=== PATIENT | female | born 1990 | race African-American/Black ===

== ENCOUNTER 2020-08-03 22:30 | Emergency (ER) | payer SELFPAY ==
[~2020-08-03] VITALS: Ht 160 cm; Wt 95.3 kg
[2020-08-03 22:35] VITALS: BP 109/65
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
--- NOTE | 2020-08-03 23:29 | NUR ---
Dr. Collins examining patient.
[2020-08-03] MEDS ORDERED: NACL 0.9% 1,000 ML IV SCH (23:30)
[2020-08-03] MEDS ORDERED: MORPHINE SULFATE 2 MG/ML SYR IVP ONE (23:30)
--- NOTE | 2020-08-03 23:33 | NUR ---
X-Ray at bedside.
--- NOTE | 2020-08-04 | NUR ---
URINE SAMPLE COLLECTED AND HANDED TO TOM VILLARREAL TECH.
[2020-08-04 00:04] LABS: APPEARANCE,URINE CLEAR (CLEAR); BILIRUBIN,URINE NEGATIVE (NEGATIVE); BLOOD, URINE NEGATIVE (NEGATIVE); COLOR,URINE YELLOW (YELLOW); LEUKOCYTE ESTERASE ,URINE NEGATIVE (NEGATIVE); NITRITE, URINE NEGATIVE (NEGATIVE); UGLUCOSE 3+ (NEGATIVE)
[2020-08-04 00:14] LABS: RBC,URINE NONE SEEN /HPF (0-5); WBC,URINE NONE SEEN /HPF (0-5)
--- NOTE | 2020-08-04 00:30 | NUR ---
BLOOD LABS & CULTURE COLLECTED , WALKED TO LAB AND HANDED TO TOM VILLARREAL TECH .
[2020-08-04 00:44] LABS: BASOPHILS % (AUTO) 0.4 % (0.0-2.0); EOSINOPHILS # (AUTO) 0.7 K/uL (0-0.4); HEMATOCRIT 30.3 % (36-48); HEMOGLOBIN 10.1 g/dL (12.0-16.0); LYMPHOCYTES # (AUTO) 2.2 K/uL (2.5-16.5); LYMPHOCYTES % (AUTO) 19.6 % (20.5-51.1); MEAN CORPUSCULAR HEMOGLOBIN 27 pg (27-31); MEAN CORPUSCULAR HGB CONC 33 g/dL (33-37); MEAN CORPUSCULAR VOLUME 79.8 fL (80-94); MONOCYTES # (AUTO) 0.8 K/uL (0.8-1.0); MONOCYTES % (AUTO) 7.2 % (1.7-9.3); NEUTROPHILS # (AUTO) 7.6 K/uL (1.8-7.7); NEUTROPHILS % (AUTO) 66.6 % (42.2-75.2); PLATELET COUNT (AUTO) 270 K/uL (140-450); RED CELL DISTRIBUTION WIDTH 17.1 % (11.6-13.7); WHITE BLOOD COUNT (AUTO) 11.4 K/uL (4.8-10.8)
[2020-08-04 00:52] LABS: EOSINOPHILS % (AUTO) 6.2 % (0.0-4.0)
[2020-08-04 00:59] LABS: ANION GAP 15.3 (8-16); CARBON DIOXIDE 21.3 mmol/L (21-32); CREATININE 0.8 mg/dL (0.6-1.3); POTASSIUM 3.6 mmol/L (3.5-5.1)
[2020-08-04] MEDS ORDERED: diphenhydrAMINE 50 MG/ML VIAL IVP ONE (01:00)
[2020-08-04] MEDS ORDERED: MORPHINE SULFATE 2 MG/ML SYR IVP ONE (01:00)
[2020-08-04 01:03] LABS: PROTHROMBIN TIME 10.1 secs (10.8-13.4)
[2020-08-04 01:04] LABS: TOTAL BILIRUBIN 0.3 mg/dL (0.0-1.0)
--- NOTE | 2020-08-04 01:30 | NUR ---
PER PT - PAIN LEVEL 12/30 , ERMD MADE AWARE OF PT PAIN LEVEL AT THIS TIME.
--- NOTE | 2020-08-04 01:43 | NUR ---
ERMD AT BEDSIDE.
[2020-08-04] MEDS ORDERED: MORPHINE SULFATE 4 MG/ML SYR IVP ONE (01:45)
--- NOTE | 2020-08-04 02:23 | NUR ---
Per Pt she has a ride picking her up from ER.
--- NOTE | 2020-08-04 02:23 | NUR ---
per pt - pain level currently at 01/30 . ERMD made aware.
--- NOTE | 2020-08-04 02:28 | NUR ---
IV removed, catheter intact and site benign. Applied folded 4x4 gauze and tape to stop bleeding.
[2020-08-04 02:32] VITALS: BP 120/62
--- NOTE | 2020-08-04 02:32 | NUR ---
Patient discharged with v/s stable. Written and verbal after care instructions given and explained. Patient verbalized understanding. Ambulatory with steady gait. All questions addressed prior to discharge. Advised to follow up with PMD.
[2020-08-05] MEDS ORDERED: VITA1TAB44 PO (20:10)
[2020-08-05] MEDS ORDERED: ASCO500T95 PO (20:10)
== END 2020-08-04 02:32 | disposition home or self-care (01) ==
LOC: MED 22:30
DX: D57.819 Other sickle-cell disorders with crisis, unspecified (principal); R03.0 Elevated blood-pressure reading, without diagnosis of hypertension; Z88.0 Allergy status to penicillin; Z88.1 Allergy status to other antibiotic agents; Z79.899 Other long term (current) drug therapy
CPT/HCPCS: 36415; 71045; 80053; 81001; 83605; 85025; 85610; 85730; 87040; 93005; 96361; 96374; 96375; 96376; 99285; J1200; J2270; J7030; Q0092

== ENCOUNTER 2020-08-05 17:13 | Inpatient (IN) | payer MEDICAID, SELFPAY ==
[~2020-08-05] VITALS: Ht 160 cm; Wt 93.4 kg
[2020-08-05 17:17] VITALS: BP 107/70
--- NOTE | 2020-08-05 17:20 | NUR ---
PATIENT AMBULATED TO BED 12.
[2020-08-05] MEDS ORDERED: diphenhydrAMINE 50 MG/ML VIAL IVP ONE ×2 (17:45→18:55)
[2020-08-05] MEDS ORDERED: ONDANSETRON 4 MG/2 ML VIAL IVP ONE (17:45)
[2020-08-05] MEDS ORDERED: MORPHINE SULFATE 4 MG/ML SYR IVP ONE ×2 (17:45→18:55)
--- NOTE | 2020-08-05 17:55 | NUR ---
Lt EJ IV initiated. tolerated well.
--- NOTE | 2020-08-05 18:00 | NUR ---
states unable to provide urine at the moment.
[2020-08-05 18:10] LABS: BASOPHILS # (AUTO) 0.1 K/uL (0.00-0.22); BASOPHILS % (AUTO) 0.7 % (0.0-2.0); EOSINOPHILS # (AUTO) 0.6 K/uL (0-0.4); EOSINOPHILS % (AUTO) 5.1 % (0.0-4.0); HEMATOCRIT 29.6 % (36-48); LYMPHOCYTES # (AUTO) 2.1 K/uL (2.5-16.5); LYMPHOCYTES % (AUTO) 18.3 % (20.5-51.1); MEAN CORPUSCULAR HEMOGLOBIN 27 pg (27-31); MEAN CORPUSCULAR HGB CONC 34 g/dL (33-37); MEAN CORPUSCULAR VOLUME 80.1 fL (80-94); MONOCYTES # (AUTO) 1.1 K/uL (0.8-1.0); MONOCYTES % (AUTO) 9.3 % (1.7-9.3); NEUTROPHILS # (AUTO) 7.5 K/uL (1.8-7.7); NEUTROPHILS % (AUTO) 66.6 % (42.2-75.2); PLATELET COUNT (AUTO) 283 K/uL (140-450); RED CELL DISTRIBUTION WIDTH 16.9 % (11.6-13.7); WHITE BLOOD COUNT (AUTO) 11.3 K/uL (4.8-10.8)
[2020-08-05 18:32] LABS: PROTHROMBIN TIME 10.1 secs (10.8-13.4)
[2020-08-05 18:33] LABS: ALBUMIN 2.9 g/dL (3.4-5.0); ANION GAP 15.9 (8-16); CARBON DIOXIDE 19.8 mmol/L (21-32); CREATININE 0.9 mg/dL (0.6-1.3); POTASSIUM 3.7 mmol/L (3.5-5.1); TOTAL BILIRUBIN 0.3 mg/dL (0.0-1.0)
--- NOTE | 2020-08-05 18:35 | NUR ---
29 year old female coming in for systemic body pain. states she is having a sickle cell crisis x 3 days now. was seen here x 2 days ago and states that her pain meds are not working for her. states pain is 10/[address] Mello made aware. RRR. Heart sounds even and regular. all other systems WNL. pmhx: Sickle cell, + lupus test per pt. allx: PCN, Cipro
--- NOTE | 2020-08-05 18:38 | NUR ---
pt still states unable to provide urine.
--- NOTE | 2020-08-05 19:01 | NUR ---
states " honestly, I still cant provide any urine to you, I don't have the feeling of going." Dr. Mello made aware
--- NOTE | 2020-08-05 19:15 | NUR ---
Received report from SIMONE Reddy. Continuation of care assumed.
--- NOTE | 2020-08-05 20:00 | NUR ---
COVID ANTIGEN (ANNETTE) SWAB COLLECTED AND SENT TO LAB.
[2020-08-05] MEDS ORDERED: ASCO500T95 PO (20:10)
[2020-08-05] MEDS ORDERED: VITA1TAB44 PO (20:10)
[2020-08-05 20:19] LABS: APPEARANCE,URINE CLEAR (CLEAR); BILIRUBIN,URINE NEGATIVE (NEGATIVE); BLOOD, URINE NEGATIVE (NEGATIVE); COLOR,URINE YELLOW (YELLOW); LEUKOCYTE ESTERASE ,URINE NEGATIVE (NEGATIVE); NITRITE, URINE NEGATIVE (NEGATIVE); UGLUCOSE 3+ (NEGATIVE)
[2020-08-05 20:31] LABS: BARBITURATE, URINE NEGATIVE ng/ml (NEG <=200); BENZODIAZEPINE, URINE NEGATIVE ng/mL (NEG <=200); CANNABINOID, URINE NEGATIVE ng/mL (NEG <=50); COCAINE, URINE NEGATIVE ng/mL (NEG <=300); OPIATE, URINE NEGATIVE ng/mL (NEG <=2000); PHENCYCLIDINE SCREEN,URINE NEGATIVE ng/mL (NEG <=25)
[2020-08-05] MEDS: NACL 0.9% 1,000 ML IV SCH (20:36)
[2020-08-05 20:37] LABS: RBC,URINE 0-5 /HPF (0-5)
[2020-08-05 20:38] LABS: WBC,URINE 0-5 /HPF (0-5)
[2020-08-05] MEDS ORDERED: POTASSIUM CHLORIDE 10 MEQ TABER PO PRN (20:40)
[2020-08-05] MEDS ORDERED: guaiFENesin DM 200/20 MG-10 ML 10 ML UDC PO PRN (20:40)
[2020-08-05] MEDS ORDERED: HYDROcodone/APAP 7.5/325 MG 1 TAB PO PRN (20:40)
[2020-08-05] MEDS ORDERED: DOCUSATE SODIUM 100 MG GELCAP PO PRN (20:40)
[2020-08-05] MEDS ORDERED: ACETAMINOPHEN 325 MG TAB PO PRN (20:40)
[2020-08-05] MEDS ORDERED: ZOLPIDEM 5 MG TAB PO PRN (20:40)
[2020-08-05] MEDS ORDERED: ONDANSETRON 4 MG/2 ML VIAL IM/IVP PRN (20:40)
[2020-08-05] MEDS ORDERED: KETOROLAC 30 MG/ML VIAL IVP SCH (20:45)
--- NOTE | 2020-08-05 21:05 | NUR ---
Patient will be admitted to care of DR. SEGOVIA. Admited to TELEMETRY Will go to room 106A. Belongings list completed. Report to SIMONE AGRAWAL.
--- NOTE | 2020-08-05 21:05 | NUR ---
ADMITTED 29 YO, F, PT TO TELE UNIT W/ A CHIEF COMPLAINT OF SYSTEMIC BODY PAIN, DX: OF SICKLE CELL CRISIS. PT IS AAOX4, ABLE TO MAKE NEEDS KNOWN. PT HAS NO APPARENT DISTRESS, NO SOB, RESPIRATIONS EVEN AND UNLABORED. NOTED IV ACCESS ON L EXTRAJUGULAR G18. PT NOTED TO BE IRRITABLE BECAUSE OF PAIN, PER PT SHE RECEIVED 8MG OF MORPHINE AROUND 1849, SHE STILL ASKING FOR MORE MORPHINE, EXPLAINED TO HER THAT THE MD ORDER HAS FREQUENCY OF Q6H. PT WAS UPSET, STATED THAT SHE WAS IN SO MUCH PAIN D/T HER SICKLE CELL. EXPLAINED TO HER THE ALTERNATIVE MEDS SHE CAN GET, VERBALIZED UNDERSTANDING. SKIN DRY, INTACT AND WARM TO TOUCH. ORIENTED TO ROOM AND CALL LIGHT. SAFETY MEASURES IN PLACED. CALL LIGHT WITHIN REACH. WILL CONTINUE TO MONITOR.
[2020-08-05 21:25] LABS: CHOL/HDL RATIO 2.5 (1-4.5); FREE T4 (FREE THYROXINE) 0.97 ng/dL (0.76-1.46); MAGNESIUM 1.7 mg/dL (1.8-2.4); PHOSPHORUS 3.3 mg/dL (2.5-4.9); THYROID STIMULATING HORMONE 1.01 uIU/mL (0.34-3.74)
--- NOTE | 2020-08-05 22:00 | NUR ---
DR SEGOVIA MADE AWARE ABOUT PT'S PAIN, MADE AN ORDER OF DILAUDID 1X FOR SEVERE PAIN.
[2020-08-05] MEDS ORDERED: HYDROmorphone 1 MG/ML AMP IVP ONE (22:05)
[2020-08-05 22:10] LABS: WBC,URINE NONE SEEN /HPF (0-5)
--- NOTE | 2020-08-05 22:30 | NUR ---
CALLED [facility] TO FOLLOW UP THE VERIFICATION OF DILAUDID, INFORMED THEM THAT PT NEEDS IT IMMEDIATELY. WILL FOLLOW UP AGAIN AFTER 15 MINS.
--- NOTE | 2020-08-05 22:50 | NUR ---
DILAUDID 1MG ADMINISTERED VIA IVP FOR SEVERE PAIN. WILL RE-ASSESS PAIN AFTER AN HOUR.
--- NOTE | 2020-08-05 23:50 | NUR ---
PAIN MEDICINE EFFECTIVE, PT SEEN SLEEPING IN BED WITH NO DISTRESS. WILL CONTINUE TO MONITOR.
[2020-08-06] VITALS: BP 104/56
--- NOTE | 2020-08-06 01:50 | NUR ---
PT IN BED RESTING COMFORTABLY, NO ACUTE DISTRESS, NO SOB NOTED. NO C/O PAIN AT THIS TIME. SAFETY MEASURES IN PLACED. CALL LIGHT WITHIN REACH. WILL CONTINUE TO MONITOR.
[2020-08-06] MEDS ORDERED: HYDROmorphone 1 MG/ML AMP ONE (04:25)
[2020-08-06] MEDS ORDERED: CLINICAL MONITORING MC PRN ×2 (05:30→06:10)
--- NOTE | 2020-08-06 05:39 | NUR ---
PATIENT HAS BEEN SCREENED AND CATEGORIZED MODERATE NUTRITION RISK. PATIENT WILL BE SEEN WITHIN 3-5 DAYS OF ADMISSION. 08/08/20 08/10/[address]
[2020-08-06 06:53] LABS: ANION GAP 15.6 (8-16); CARBON DIOXIDE 18.8 mmol/L (21-32); CREATININE 0.8 mg/dL (0.6-1.3); POTASSIUM 3.4 mmol/L (3.5-5.1)
--- NOTE | 2020-08-06 07:27 | NUR ---
RECEIVED BEDSIDE REPORT FROM MERCHANDISING COORDINATOR NURSE NGHIA FOR CONTINUITY OF CARE. PATIENT IS ASLEEP COMFORTABLY ON BED, AROUSABLE TO VOICE. NO SIGNS OF ACUTE DISTRESS NOTED. IV ON LEJ 18G, CLEAN AND INTACT, INFUSING NS AT 100 ML/HR. SKIN DRY AND CLEAN. PATIENT IS CONTINENT AND ABLE TO USE THE BATHROOM. TELE MONITOR IN PLACE. SAFETY MEASURES IN PLACE. BED IN LOW POSITION AND CALL LIGHT WITHIN REACH. BOARD UPDATED.
[2020-08-06] MEDS ORDERED: HYDROmorphone 1 MG/ML AMP IVP SCH ×2 (07:55→08:18)
[2020-08-06 08:00] VITALS: BP 106/54
[2020-08-06 08:05] LABS: BASOPHILS % (AUTO) 0.3 % (0.0-2.0); EOSINOPHILS # (AUTO) 0.7 K/uL (0-0.4); EOSINOPHILS % (AUTO) 6.7 % (0.0-4.0); HEMATOCRIT 27.9 % (36-48); HEMOGLOBIN 9.2 g/dL (12.0-16.0); LYMPHOCYTES # (AUTO) 2.1 K/uL (2.5-16.5); LYMPHOCYTES % (AUTO) 21.2 % (20.5-51.1); MEAN CORPUSCULAR HEMOGLOBIN 27 pg (27-31); MEAN CORPUSCULAR HGB CONC 33 g/dL (33-37); MEAN CORPUSCULAR VOLUME 81.7 fL (80-94); MONOCYTES # (AUTO) 0.7 K/uL (0.8-1.0); MONOCYTES % (AUTO) 6.6 % (1.7-9.3); NEUTROPHILS # (AUTO) 6.6 K/uL (1.8-7.7); NEUTROPHILS % (AUTO) 65.2 % (42.2-75.2); PLATELET COUNT (AUTO) 255 K/uL (140-450); RED BLOOD CELL COUNT(AUTO) 3.41 MIL/uL (4.20-5.40); WHITE BLOOD COUNT (AUTO) 10.1 K/uL (4.8-10.8)
[2020-08-06] MEDS: MORPHINE SULFATE 2 MG/ML SYR IVP PRN ×3 (08:17→21:32)
[2020-08-06] MEDS: NACL 0.9% 1,000 ML IV SCH ×2 (08:17→17:35)
[2020-08-06] MEDS: PANTOPRAZOLE 40 MG TABEC PO SCH (08:22)
--- NOTE | 2020-08-06 08:23 | NUR ---
ATTENDED TO CALL LIGHT, PATIENT CRYING AND COMPLAINING THAT SHE HAS 10/10 PAIN, STATED, " I GOT MY DILAUDID BUT NOT THE MORPHINE. I NEED THE MORPHINE EVERY 3 HOURS NOT 6, IT DOES NOT HELP ME WITH MY PAIN." ASSESSED PATIENT, AND MEDICATED WITH PRN MORPHINE, MEDS EDUCATION PROVIDED, PATIENT REFUSED PROTONIX AND STATED, " I DON'T HAVE ANY STOMACH ISSUE, AND I TOLD YOU I DON'T WANT IT, I JUST NEED MY PAIN MED." PATIENT INSISTED NOT TAKING THE PROTONIX, WILL NOTIFY PHARMACY AND DISCARD OPEN MED. PATIENT IS SITTING UP ON BED AND EATING BREAKFAST, NO OTHER DISTRESS NOTED. TELE MONITOR IN PLACE. SAFETY MEASURES IN PLACE. BED IN LOW POSITION AND CALL LIGHT WITHIN REACH.
--- NOTE | 2020-08-06 09:05 | NUR ---
DR SEGOVIA IS ROUNDING ON PATIENT WITH MEDICAL TEAM AT BEDSIDE.
--- NOTE | 2020-08-06 10:57 | NUR ---
PATIENT IS RESTING ON BED. EXPLAINED TO PATIENT THAT HER POTASSIUM IS 3.4L FROM AM LAB, AND DR SEGOVIA ORDERS POTASSIUM K-DUR 40 MEQ TABLETS, PATIENT STATED, " I CAN'T SWALLOW THE PILLS. IT'S TOO BIG FOR ME AND I WILL THROW UP. I NEED SOMETHING IN LIQUID." WILL NOTIFY DR SEGOVIA. PATIENT DENIED PAIN, SOB AND ANY DISTRESS AT THIS TIME. NO SIGNS OF ACUTE DISTRESS NOTED. TELE MONITOR IN PLACE. SAFETY MEASURES IN PLACE.
--- NOTE | 2020-08-06 11:05 | NUR ---
SOCIAL WORK NOTE: Patient's Orientation Person Situation Place Time Information Provided By PATIENT Comments SW MET WITH PATIENT AT BEDSIDE TO COMPLETE ASSESSMENT. Consulting Analyst, Realtionship and Phone Number REBEKAH MAHONEY SIGNIFICANT OTHER [phone] [facility] Power of Technology Adoption Manager No Does Patient Have a POLST No Identifying Problems No Social Work Triggers Is A Social Work Consult Needed No Mandate Report Filed No Explanation Of Identifying Problems PATIENT IS A 29-YEAR-OLD FEMALE ADMITTED FOR SICKLE CELL PAIN CRISIS. PATIENT HAS PMHX OF SICKLE CELL DISEASE AND LUPUS. PATIENT REPORTED NO HISTORY OF SUBSTANCE ABUSE OR MENTAL HEALTH. Admitted From Home Pre-Admission Level Of Functioning Status Independent/Ambulatory Prior Resources/Services Used In Last 12 Months No Prior Resources Used Prior DME No Prior DME Used Dialysis Comments PATIENT REPORTED NOT RECEIVING DIALYSIS. Living Situation Lives With Family House Patient Had Caregiver No Home Support No Caregiver Issues Financial Issues No Known Financial Issue Referral To The Financial Counselor Needed No Factors/Needs No D/C Needs Identified Pt/Rep Participated In Discharge Plan Yes Patient/Family Agress With Discharge Plan Yes Discharge Plan Comments TENTATIVE DISCHARGE PLAN IS FOR PATIENT TO RETURN HOME. DC Plan Status Initiated
[2020-08-06] MEDS ORDERED: POTASSIUM CHLORIDE 20% 40 MEQ/15 ML UDC PO SCH (11:10)
[2020-08-06] MEDS: POTASSIUM CHLORIDE 20% 40 MEQ/15 ML UDC PO PRN (11:43)
--- NOTE | 2020-08-06 11:47 | NUR ---
ADMINISTERED POTASSIUM CHLORIDE FOR LOW POTASSIUM 3.4L FROM AM LAB, MED EDUCATION PROVIDED AND PATIENT VERBALIZED UNDERSTANDING.
[2020-08-06] MEDS: HYDROmorphone 1 MG/ML AMP IVP PRN ×2 (11:58→18:10)
[2020-08-06 12:00] VITALS: BP 100/59
--- NOTE | 2020-08-06 12:01 | NUR ---
ATTENDED TO CALL LIGHT, PATIENT COMPLAINED 10/10 PAIN, SHE FEELS ACHING AND PRESSURE. MEDICATED WITH PRN DILAUDID, MED EDUCATION PROVIDED AND PATIENT VERBALIZED UNDERSTANDING. PATIENT AWAKE AND LOOKING AT HER PHONE ON BED, NO SIGNS OF ACUTE DISTRESS NOTED. TELE MONITOR IN PLACE. SAFETY MEASURES IN PLACE.
--- NOTE | 2020-08-06 13:50 | NUR ---
DISCHARGE PLANNING: THIS IS A 29 Y/O FEMALE PATIENT FROM HOME, WHO CAME IN DUE TO SICKLE CELL PAIN CRISIS. PAST MEDICAL HISTORY INCLUDE SICKLE CELL DISEASE AND LUPUS. INITIAL DIAGNOSIS OF SICKLE CELL PAIN CRISIS. CURRENT LABS INCLUDE WBC 10.1, H/H 9.2/27.9, NA/K 137/3.4, BUN/CREA 3/0.8, CALCIUM 8.3, MAG 1.7. COVID NANETTE NEGATIVE. ON ROOM AIR, O2 SAT 100%. CXR ON ADMISSION NEGATIVE. DC PLAN BACK TO HOME ONCE STABLE. Addendum: 08/07/20 at 1350 by Esme Messina CM FOR POSSIBLE DC TODAY PENDING [facility]'S RECOMMENDATIONS. Addendum: 08/08/20 at 1510 by Esme Messina CM LATE ENTRY: SEEN BY [facility] - INCREASED DILAUDID TO 2MG Q 3 HOURS PRN AND WILL REEVALUATE PAIN LEVEL TODAY. DISCUSSED POC WITH DR. PEREZ. PER DR. PEREZ, PATIENT IS STILL COMPLAINING OF PAIN. WILL REEVALUATE PATIENT. MET WITH THE PATIENT AT THE BEDSIDE TOGETHER WITH DR. PEREZ TO DISCUSS PAIN MEDICATION. DR. PEREZ EXPLAINED TO THE PATIENT THAT WE NEED TO TRANSITIONED HER TO PO MEDS TO PREPARE HER FOR HOME. PATIENT STATED SHE IS STILL HAVING PAIN AND SHE DOES FEEL THAT PO MEDS WILL WORK FOR HER IF IV PAIN MEDS WILL BE DC'D COMPLETELY. DR. PEREZ INFORMED HER THAT IT WILL NOT BE DC'D COMPLETELY HOWEVER THE FREQUENCY WILL BE DECREASED TO 6 HOURS. PATIENT IS NOT IN AGREEMENT. DR PEREZ THEN RECOMMENDED TO KEEP THE DOSE AND FREQUENCY AND WILL STOP IT AT 3AM AND START HER PO MEDS. PATIENT IS ABLE TO VERBALIZE UNDERSTANDING.
--- NOTE | 2020-08-06 15:05 | NUR ---
ATTENDED TO CALL LIGHT, PATIENT COMPLAINED 8/10 PAIN, SHE FEELS ACHING AND PRESSURE. MEDICATED WITH PRN PAIN MED MORPHINE, MED EDUCATION PROVIDED, PATIENT VERBALIZED UNDERSTANDING. PATIENT STATED SHE LOST HER EAR PODS CASE AND PROBABLY SHE LEFT IT ON HER LUNCH TRAY AND GOT SCHEDULING MANAGER. CALLED [facility] AND SPOKE WITH DIRECTOR OF PROCUREMENT, THEY LOOKED IN THE TRASH AND AREAS, THEY DIDN'T FIND ANY CASE. NOTIFIED PATIENT, PATIENT SAID OK. PATIENT IS RESTING ON AT THIS TIME. NO ACUTE DISTRESS NOTED. TELE MONITOR IN PLACE. SAFETY MEASURES IN PLACE. BED IN LOW POSITION AND CALL LIGHT WITHIN REACH.
[2020-08-06 16:00] VITALS: BP 98/51
--- NOTE | 2020-08-06 17:35 | NUR ---
STARTED A NEW BAG OF IVF NS AND CONTINUE INFUSING AT 100 ML/HR PER MD ORDER. PATIENT IS TALKING ON HER PHONE. FOUND PATIENT' EAR POD CASE UNDER THE BED, HANDED IT BACK TO PATIENT AND ASKED PATIENT TO KEEP IT IN A SAFE PLACE, PATIENT VERBALIZED UNDERSTANDING. PATIENT STATED PAIN IS 3/10 AT THIS TIME AND IT'S TOLERABLE TO HER. NO SIGNS OF ACUTE DISTRESS NOTED. TELE MONITOR IN PLACE. SAFETY MEASURES IN PLACE.
--- NOTE | 2020-08-06 17:46 | NUR ---
PATIENT REQUESTED FOR A BOTTLE OF SODA, PROVIDED.
--- NOTE | 2020-08-06 18:12 | NUR ---
ATTENDED TO CALL LIGHT, PATIENT COMPLAINING AND CRYING THAT SHE IS IN 10/10 PAIN. MEDICATED PATIENT WITH PRN DILAUDID, MED EDUCATION PROVIDED, PATIENT VERBALIZED UNDERSTANDING. PATIENT IS RESTING ON BED AT THIS TIME. NO ACUTE DISTRESS NOTED. TELE MONITOR IN PLACE. SAFETY MEASURES IN PLACE.
--- NOTE | 2020-08-06 19:02 | NUR ---
ENDORSED PATIENT AT BEDSIDE TO HOT MAN RN PA FOR CONTINUITY OF CARE. PATIENT AWAKE AND USING HER PHONE. NO SIGNS OF DISTRESS NOTED. TELE MONITOR IN PLACE. PATIENT IS IN STABLE CONDITION.
--- NOTE | 2020-08-06 19:26 | NUR ---
RECEIVED CONTINUITY OF CARE FROM AM NURSE. PT IS SITTING IN BED USING HER PHONE, ALERT AND ORIENTED, BREATHING SPONTANEOUSLY ON ROOM AIR, LUNGS ARE CLEAR, ACTIVE BOWEL TONES NOTED, SKIN IS CLEAN, DRY, INTACT. TELE MONITOR IN PLACE. IV TO LEJ IS PATENT AND INTACT. ORIENTED PT TO STAFF AND CALL LIGHT. SAFETY PRECAUTIONS IN PACE. PT IS IN STABLE CONDITION.
[2020-08-06 20:00] VITALS: BP 101/47
--- NOTE | 2020-08-06 21:10 | NUR ---
ADMINISTERED SCHEDULED PAIN MEDICATION PER MD ORDER. EDUCATION WAS GIVEN. PT VERBALIZED UNDERSTANDING. NO SIGNS OF DISTRESS AT THIS TIME.
[2020-08-07] VITALS: BP 109/46
[2020-08-07] MEDS: HYDROmorphone 1 MG/ML AMP IVP PRN ×2 (00:21→06:46)
--- NOTE | 2020-08-07 00:30 | NUR ---
ADMINISTERED SCHEDULED PAIN MEDICATION PER MD ORDER. EDUCATION WAS GIVEN. PT VERBALIZED UNDERSTANDING.
--- NOTE | 2020-08-07 01:50 | NUR ---
PT REPORTED PAIN EXACERBATION, IS CRYING AND INCONSOLABLE. MD WAS NOTIFIED OF THE PT'S CONDITION. NO ORDER RECEIVED. PT WAS INFORMED OF THE MD'S ACTIONS. PT IS VISIBLY UPSET AND CURSING. PT IS LYING IN BED AND ON HER PHONE. PT REFUSED VITALS ASSESSMENT AND SHOWS NO SIGNS OF DISTRESS. WILL CONTINUE TO MONITOR.
[2020-08-07] MEDS: NACL 0.9% 1,000 ML IV SCH ×2 (03:33→12:04)
--- NOTE | 2020-08-07 03:35 | NUR ---
ADMINISTERED SCHEDULED PAIN MEDICATION. EDUCATION WAS GIVEN. PT IS IN STABLE CONDITION.
[2020-08-07] MEDS: MORPHINE SULFATE 2 MG/ML SYR IVP PRN ×3 (03:37→18:36)
[2020-08-07 04:00] VITALS: BP 100/50
--- NOTE | 2020-08-07 05:54 | NUR ---
PT IS LYING IN BED ON HER PHONE. NO SIGNS OF DISTRESS NOTED.
--- NOTE | 2020-08-07 07:20 | NUR ---
RECEIVED BEDSIDE REPORT FROM NIGHTSHIFT NURSE FOR CONTINUITY OF CARE. PT RESTING IN BED. ABLE TO MAKE NEEDS KNOWN. RESPIRATIONS EVEN AND UNLABORED WITH NO SOB OR RESPIRATORY DISTRESS. IV SITE IN LIJ 18G IS CLEAN, DRY, AND INTACT. SAFETY MEASURES IN PLACE. WILL CONTINUE TO MONITOR
--- NOTE | 2020-08-07 07:52 | NUR ---
GAVE REPORT AND ENDORSED CARE TO AM NURSE. PT IS IN STABLE CONDITION.
[2020-08-07 08:56] LABS: BASOPHILS # (AUTO) 0.1 K/uL (0.00-0.22); BASOPHILS % (AUTO) 0.8 % (0.0-2.0); EOSINOPHILS # (AUTO) 0.7 K/uL (0-0.4); EOSINOPHILS % (AUTO) 7.4 % (0.0-4.0); HEMATOCRIT 29.8 % (36-48); LYMPHOCYTES # (AUTO) 1.9 K/uL (2.5-16.5); MEAN CORPUSCULAR HEMOGLOBIN 27 pg (27-31); MEAN CORPUSCULAR HGB CONC 34 g/dL (33-37); MEAN CORPUSCULAR VOLUME 80.4 fL (80-94); MONOCYTES # (AUTO) 0.6 K/uL (0.8-1.0); NEUTROPHILS # (AUTO) 6.1 K/uL (1.8-7.7); NEUTROPHILS % (AUTO) 65.8 % (42.2-75.2); PLATELET COUNT (AUTO) 256 K/uL (140-450); RED BLOOD CELL COUNT(AUTO) 3.71 MIL/uL (4.20-5.40); RED CELL DISTRIBUTION WIDTH 16.4 % (11.6-13.7); WHITE BLOOD COUNT (AUTO) 9.3 K/uL (4.8-10.8)
[2020-08-07] MEDS: PANTOPRAZOLE 40 MG TABEC PO SCH ×2 (09:00→10:28)
[2020-08-07 09:09] LABS: T4 (THYROXINE) 11.4 ug/dL (4.5-12.0)
[2020-08-07 09:16] LABS: ANION GAP 15.4 (8-16); CREATININE 0.7 mg/dL (0.6-1.3); POTASSIUM 3.4 mmol/L (3.5-5.1)
--- NOTE | 2020-08-07 09:30 | NUR ---
PT ADMINISTERED SCHEDULED MEDS PRESCRIBED BY MD ORDER. PT TOLERATED MEDS WELL. PT EDUCATION PROVIDED. PT VERBALIZED UNDERSTANDING. SAFETY MEASURES IN PLACE. WILL CONT TO MONITOR.
[2020-08-07] MEDS: MAGNESIUM OXIDE 400 MG TAB PO SCH (10:29)
[2020-08-07] MEDS: HYDROXYUREA 500 MG CAP PO SCH ×2 (10:29→20:12)
[2020-08-07] MEDS: POTASSIUM CHLORIDE 20% 40 MEQ/15 ML UDC PO PRN (10:31)
--- NOTE | 2020-08-07 10:33 | NUR ---
PATIENT COMPLAINED OF SEVERE PAIN, REQ PAIN MEDICATION. ADMINISTERED PRN MORPHINE PRESCRIBED BY DR. PT TOLERATED MEDS WELL. MEDICATION EDUCATION PROVIDED, PT VERBALIZED UNDERSTANDING. PT POTASSIUM LEVEL 3.3, ADVSD PT OF LEVEL. UPON ADMINISTERING PO POTASSIUM, PT EXPRESSED UNWILLINGNESS TO TAKE LIQUID FORM. OFFERED TO PROVIDE W/ LIQUID BUT PT REFUSED AND REQ PILL FORM CUT IN HALF. CONTACTED PHARMACY AND WAS ADVISED POTASSIUM PILL IS NOT CRUSHABLE. ADVSD PT, PT THEN REFUSED POTASSIUM. DR AND CHARGE NURSE NOTIFIED OF PT REFUSAL OF MED. SAFETY MEASURES IN PLACE. WILL CONT TO MONITOR.
[2020-08-07] MEDS ORDERED: HYDROmorphone 1 MG/ML AMP IVP PRN ×2 (11:00→16:00)
[2020-08-07 11:20] VITALS: BP 110/68
[2020-08-07 12:00] VITALS: BP 108/66
--- NOTE | 2020-08-07 12:04 | NUR ---
PT COMPLAINED OF SEVERE PAIN. PRN DILAUDID ADMINISTERED PRESCRIBED PER MD ORDER. PT TOLERATED WELL. MEDICATION EDUCATION PERFORMED. PT VERBALIZED UNDERSTANDING. SAFETY MEASURES IN PLACE. WILL CONTINUE TO MONITOR
--- NOTE | 2020-08-07 13:00 | NUR ---
PT RESTING IN BED. NO SIGNS OF DISTRESS, ABLE TO MAKE NEEDS KNOWN. SKIN WARM AND DRY TO TOUCH. RESPIRATIONS EVEN AND UNLABORED W/ NO SOB OR RESPIRATORY DISTRESS. SAFETY MEASURES IN PLACE. WILL CONT TO MONITOR.
--- NOTE | 2020-08-07 15:15 | NUR ---
PT COMPLAINED OF PAIN. ADVSD NEXT PRN CAN GIVE AT 1600 AND 1630. PT STATED SHE JUST SAW [facility] AND WAS TOLD PAIN MED CHANGING FROM Q 3HRS TO Q 4HRS. ADVSD PT WILL WAIT FOR NEW ORDER TO BE ENTERED AND LET HER KNOW WHEN ABLE TO RECEIVE MED.
[2020-08-07 16:00] VITALS: BP 107/69
[2020-08-07] MEDS: NACL 0.45% 1,000 ML IV SCH (16:00)
[2020-08-07] MEDS: HYDROmorphone PFS 2 MG/ML SYR IVP PRN ×3 (16:00→23:14)
--- NOTE | 2020-08-07 16:00 | NUR ---
PT COMPLAINED OF SEVERE PAIN, 07/02. ADMINISTERED PRESCRIBED MED PER MD ORDER. PT TOLERATED WELL. MED EDUCATION INFORMED, PT VERBALIZED UNDERSTANDING. SAFETY MEASURES IN PLACE. WILL CONT TO MONITOR.
--- NOTE | 2020-08-07 16:53 | NUR ---
PT COMPLAINED OF NAUSEA. PT STATES THAT SHE HAD TACO BERGMAN FOR LUNCH. ADMINISTERED PRN ZOFRAN PRESCRIBED PER MD ORDER. PT TOLERATED WELL. MEDICATION AND NUTRITION EDUCATION PERFORMED. PT VERBALIZED UNDERSTANDING. SAFETY MEASURES IN PLACE. WILL CONTINUE TO MONITOR
--- NOTE | 2020-08-07 18:41 | NUR ---
ADMINISTERED PT PRESCRIBED MEDS ORDERED BY MD. PT TOLERATED WELL. MEDICATION EDUCATION PERFORMED. PT VERBALIZED UNDERSTANDING. SAFETY MEASURES IN PLACE. WILL CONT TO MONITOR.
--- NOTE | 2020-08-07 18:41 | NUR ---
PT COMPLAINED OF SEVERE PAIN. OBTAINED [facility]PHINE FROM [employer], UPON DRAWING UP MED, BOTTOM OF VILE FELL OFF CAUSING MORPHINE TO SPILL ON WOW. 2ND NURSE WITNESSED SPILL, OBTAINED 2ND MORPHINE VILE FROM [employer]. PRN MORPHINE ADMINISTERED PRESCRIBED BY MD ORDER. PT TOLERATED WELL. MEDICATION EDUCATION PROVIDED. SAFETY MEASURES IN PLACE. WILL CONT TO MONITOR.
--- NOTE | 2020-08-07 19:16 | NUR ---
PT ENDORSED TO NIGHTSHIFT NURSE FOR CONT OF CARE. PT IS STABLE.
--- NOTE | 2020-08-07 19:17 | NUR ---
RECEIVED BEDSIDE SHIFT REPORT FROM DAY SHIFT NURSE. PT AAOX4, AMBULATORY, AND ABLE TO MAKE NEEDS KNOWN. RESPIRATIONS EVEN AND UNLABORED TO ROOM AIR. SKIN IS WARM, DRY, AND INTACT. ABDOMEN IS SOFT AND NON-TENDER. PT IS ON CARDIAC DIET. IVF ON LEFT IJ G 18 PATENT AND INTACT. IVF INFUSING WELL. PT DENIES ANY PAIN OR DISCOMFORT AT THIS TIME. NO REQUESTS MADE. SAFETY MEASURES IN PLACE. CALL LIGHT WITHIN REACH. WILL CONTINUE TO MONITOR.
[2020-08-07 20:00] VITALS: BP 105/60
--- NOTE | 2020-08-07 20:15 | NUR ---
VITAL SIGNS STABLE. SCHEDULED MEDS GIVEN ORDERED. IVF INFUSING WELL. PT COMPLAINING OF GENERALIZED PAIN 10/10. PRN PAIN MEDICATION GIVEN ORDERED. SAFETY MEASURES IN PLACE. CALL LIGHT WITHIN REACH. WILL CONTINUE TO MONITOR.
[2020-08-07] MEDS ORDERED: KETOROLAC 30 MG/ML VIAL IVP PRN (21:20)
--- NOTE | 2020-08-07 22:09 | NUR ---
ROUNDS MADE. PT IN BED WATCHING TV. PT NOT IN DISTRESS. PT VERBALIZED TOLERABLE PAIN LEVEL AT THIS TIME. NO REQUESTS MADE. SAFETY MEASURES IN PLACE. CALL LIGHT WITHIN REACH. WILL CONTINUE TO MONITOR.
--- NOTE | 2020-08-07 23:15 | NUR ---
PT COMPLAINING OF PAIN 07/02. PRN PAIN MEDS GIVEN ORDERED. CALL LIGHT WITHIN REACH. WILL CONTINUE TO MONITOR.
[2020-08-08] VITALS: BP 106/57
--- NOTE | 2020-08-08 | NUR ---
ROUNDS MADE. PT IN BED RESTING. VS STABLE. PT NOT IN DISTRESS. PT VERBALIZED TOLERABLE PAIN AT THIS TIME. NO REQUESTS MADE. PT KEPT COMFORTABLE. SAFETY MEASURES IN PLACE. CALL LIGHT WITHIN REACH. WILL CONTINUE TO MONITOR.
[2020-08-08] MEDS: NACL 0.45% 1,000 ML IV SCH ×4 (01:22→21:05)
[2020-08-08] MEDS: HYDROmorphone PFS 2 MG/ML SYR IVP PRN ×6 (02:13→23:28)
--- NOTE | 2020-08-08 02:13 | NUR ---
PT COMPLAINING OF PAIN 07/02. PRN PAIN MEDICATION GIVEN ORDERED. WILL CONTINUE TO MONITOR.
[2020-08-08] MEDS: MORPHINE SULFATE 2 MG/ML SYR IVP PRN ×4 (03:12→22:54)
--- NOTE | 2020-08-08 03:13 | NUR ---
PT COMPLAINING OF PAIN STILL 06/01. PRN PAIN MEDICATION GIVEN ORDERED. WILL CONTINUE TO MONITOR.
[2020-08-08] MEDS ORDERED: diphenhydrAMINE 50 MG/ML VIAL IVP SCH ×2 (03:50→11:01)
[2020-08-08 04:00] VITALS: BP 117/74
--- NOTE | 2020-08-08 04:05 | NUR ---
PT COMPLAINING OF ITCHING. PRN DIPHENHYDRAMINE GIVEN ORDERED. WILL CONTINUE TO MONITOR.
--- NOTE | 2020-08-08 05:30 | NUR ---
PT COMPLAINING OF PAIN 06/01. PRN PAIN MEDICATION GIVEN ORDERED. WILL CONTINUE TO MONITOR.
[2020-08-08 06:35] LABS: BASOPHILS % (AUTO) 0.4 % (0.0-2.0); EOSINOPHILS # (AUTO) 0.7 K/uL (0-0.4); EOSINOPHILS % (AUTO) 7.9 % (0.0-4.0); HEMATOCRIT 31.3 % (36-48); HEMOGLOBIN 10.3 g/dL (12.0-16.0); LYMPHOCYTES # (AUTO) 1.7 K/uL (2.5-16.5); LYMPHOCYTES % (AUTO) 18.3 % (20.5-51.1); MEAN CORPUSCULAR HEMOGLOBIN 27 pg (27-31); MEAN CORPUSCULAR HGB CONC 33 g/dL (33-37); MEAN CORPUSCULAR VOLUME 81.6 fL (80-94); MONOCYTES # (AUTO) 0.7 K/uL (0.8-1.0); MONOCYTES % (AUTO) 7.3 % (1.7-9.3); NEUTROPHILS # (AUTO) 6.3 K/uL (1.8-7.7); NEUTROPHILS % (AUTO) 66.1 % (42.2-75.2); PLATELET COUNT (AUTO) 276 K/uL (140-450); RED BLOOD CELL COUNT(AUTO) 3.84 MIL/uL (4.20-5.40); RED CELL DISTRIBUTION WIDTH 16.9 % (11.6-13.7); WHITE BLOOD COUNT (AUTO) 9.4 K/uL (4.8-10.8)
[2020-08-08 07:05] LABS: ANION GAP 14.4 (8-16); CARBON DIOXIDE 21.9 mmol/L (21-32); CREATININE 0.8 mg/dL (0.6-1.3); MAGNESIUM 1.5 mg/dL (1.8-2.4); PHOSPHORUS 3.8 mg/dL (2.5-4.9); POTASSIUM 3.3 mmol/L (3.5-5.1)
--- NOTE | 2020-08-08 07:28 | NUR ---
ENDORSED TO DAYSPAFT NURSE FOR CONTINUITY OF CARE.
--- NOTE | 2020-08-08 07:29 | NUR ---
RECEIVED REPORT FROM SPACE PLANNER NURSE. PATIENT LYING DOWN IN BED ON HER PHONE. NO DISTRESS NOTED. PAIN WITHIN TOLERABLE. AAOX4, CALM, COOPERATIVE, SKIN COLOR APPROPRIATE TO ETHNICITY, WARM TO TOUCH. SKIN INTACT. RESPIRATIONS EVEN, UNLABORED, ON ROOM AIR. LEFT IJ INTACT, PATENT, AND INFUSING IVF PER MD ORDERS. REVIEWED PLAN OF CARE WITH PATIENT. PATIENT VERBALIZED UNDERSTANDING. SAFETY MEASURES IN PLACE, CALL LIGHT WITHIN REACH. WILL CONTINUE TO MONITOR.
[2020-08-08 08:00] VITALS: BP 111/65
[2020-08-08] MEDS: PANTOPRAZOLE 40 MG TABEC PO SCH (09:00)
[2020-08-08] MEDS: HYDROXYUREA 500 MG CAP PO SCH ×2 (09:42→21:00)
[2020-08-08] MEDS: MAGNESIUM OXIDE 400 MG TAB PO SCH (09:42)
--- NOTE | 2020-08-08 09:50 | NUR ---
PATIENT COMPLAINS OF PAIN, GENERALIZED. MORPHINE GIVEN AT THIS TIME. SCHEDULED MEDICATIONS DUE GIVEN. PATIENT REFUSED PANTOPRAZOLE PO. REFUSES ANY POTASSIUM SUPPLEMENT MEDICATIONS WELL, EVEN IV FORM WITH LIDOCAINE NURSE EXPLAINED TO PATIENT. PATIENT SAYS SHE WILL EAT MORE FOODS WITH HIGH POTASSIUM TO RAISE LEVELS.
[2020-08-08 12:00] VITALS: BP 115/64
--- NOTE | 2020-08-08 12:00 | NUR ---
PATIENT LYING DOWN IN BED SLEEPING, AROUSABLE BY VOICE. PAIN WITHIN TOLERABLE. WILL CONTINUE TO MONITOR.
--- NOTE | 2020-08-08 14:34 | NUR ---
PATIENT SITTING IN BED ON HER PHONE, CONDITION UNCHANGED. PAIN WITHIN TOLERABLE. WILL CONTINUE TO MONITOR.
--- NOTE | 2020-08-08 15:03 | NUR ---
PATIENT COMPLAINS OF PAIN, DILAUDID GIVEN AT THIS TIME. WILL CONTINUE TO MONITOR.
[2020-08-08 16:00] VITALS: BP 107/47
[2020-08-08] MEDS ORDERED: oxyCODONE 10 MG TABER PO PRN (17:25)
--- NOTE | 2020-08-08 19:05 | NUR ---
RECEIVED BEDSIDE REPORT FROM DAY SHIFT NURSE FOR CONTINUITY OF CARE. PT IS AWAKE AND ALERT. COMPLAINING OF SOB, DAY SHIFT NURSE PUT HER ON 5L O2 NC. BREATHING IS UNLABORED AND REGULAR. PT IS SITTING UPRIGHT TAKING SLOW DEEP BREATHS. PT STATES SHE IS PROBABLY JUST TIRED BECAUSE SHE HASN'T BEEN ABLE TO SLEEP IN OVER A DAY. SKIN IS WARM, DRY, AND INTACT. IV IS IN THE LEFT FOREARM 24 GAUGE RUNNING HALF NS AT 100 ML PER HOUR. BED IS IN THE LOWEST POSITION AND CALL LIGHT IS WITHIN REACH. PT IS STABLE NOW AND DOES NOT COMPLAIN OF SOB. BELONGINGS ARE IN REACH. PLAN OF CARE WAS DISCUSSED.
--- NOTE | 2020-08-08 19:06 | NUR ---
PATIENT COMPLAINS OF PAIN. DILAUDID GIVEN AT THIS TIME. WILL CONTINUE TO MONITOR.
--- NOTE | 2020-08-08 19:24 | NUR ---
GAVE REPORT TO OUTPATIENT SCHEDULER NURSE FOR CONTINUITY OF CARE. PATIENT IN STABLE CONDITION.
[2020-08-08 20:00] VITALS: BP 101/56
[2020-08-08] MEDS ORDERED: MELATONIN 3 MG TAB PO SCH (20:10)
--- NOTE | 2020-08-08 20:10 | NUR ---
SPOKE TO DR. PEREZ AND INFORMED HER THAT PT IS UNABLE TO SLEEP AND WOULD LIKE TO HAVE MELATONIN INSTEAD OF AMBIEN ORDERED TO SLEEP. DOCTOR ORDERED 1.5 MG OF MELATONIN ONCE. SHE ALSO INFORMED ME THAT SHE WANTS THE MORPHINE AND DILAUDID IV STOPPED AT 0300 AM AND WOULD ONLY LIKE HER TO RECEIVE OXYCODONE PO AFTER THAT TIME. TRYING TO WEAN HER OFF THE IV PAIN MEDS FOR POSSIBLE DC TOMORROW. WILL FOLLOW THROUGH WITH THESE ORDERS.
--- NOTE | 2020-08-08 20:15 | NUR ---
PT WAS INFORMED THAT HER POTASSIUM WAS 3.3 WHICH IS BELOW NORMAL RANGE AND WAS OFFERED POTASSIUM PRN. PT WAS INFORMED ABOUT THE IMPORTANCE OF RECEIVING POTASSIUM SUPPLEMENT AND SHE VERBALIZED UNDERSTANDING. PT STILL REFUSED MEDICATION. PT STATED SHE DOES NOT WANT TO TAKE THE POTASSIUM.
--- NOTE | 2020-08-08 20:16 | NUR ---
ASKED [facility] AFTER HOURS TO VERIFY MELATONIN. WILL ADMINISTER ONCE VERIFIED.
--- NOTE | 2020-08-08 20:46 | NUR ---
PT WAS GIVEN TYLENOL FOR A HEADACHE AND MELATONIN 1.5 MG TO HELP HER SLEEP. WILL MONITOR FOR HEADACHE AND RESTLESSNESS.
--- NOTE | 2020-08-08 21:00 | NUR ---
PT REFUSED HYDROXYUREA HOME MEDICATION. PT STATED SHE HAD A HEADACHE AND DOESN'T LIKE TO TAKE HER MEDICATION WHEN SHE HAS A HEADACHE. PT ALSO STATED SHE DOES NOT WANT TO TAKE THE DOSE AT ANY POINT TONIGHT. PT WAS TAUGHT THE IMPORTANCE OF THE RECEIVING THE MEDICATION AND VERBALIZED UNDERSTANDING AND STILL REFUSED.
--- NOTE | 2020-08-08 22:54 | NUR ---
PT COMPLAINED OF PAIN AT A SCALE OF 8/10, GENERALIZED BODY PAIN. BP WAS 130/81 PRIOR TO ADMINISTRATION OF MORPHINE PRN FOR PAIN. WILL MONITOR PAIN.
--- NOTE | 2020-08-08 23:28 | NUR ---
PT IS STILL COMPLAINING OF PAIN AT A SCALE OF 10/10 NOW, GENERALIZED BODY PAIN. PT WAS GIVEN DILAUDID ORDERED PRN FOR PAIN 10/10. IN THE ORDER IT STATES THAT DILAUDID AND MORPHINE CAN BE STACKED. BP WAS 107/60 PRIOR TO ADMINISTRATION. WILL CONTINUE TO MONITOR FOR PAIN.
[2020-08-09] VITALS: BP 105/60
--- NOTE | 2020-08-09 01:30 | NUR ---
PT IS ASLEEP. CHEST RISE AND FALL IS SYMMETRICAL. NO DISTRESS NOTED. BREATHING IS UNLABORED. ON 2L O2 NC. IV IS INFUSING IN THE LEFT FOREARM WITH HALF NS AT 100 ML PER HOUR. NO APPARENT SIGNS OF PAIN AT THIS TIME. PT IS STABLE.
[2020-08-09] MEDS ORDERED: oxyCODONE 5 MG TAB PO PRN (03:00)
[2020-08-09] MEDS: HYDROmorphone PFS 2 MG/ML SYR IVP PRN ×2 (03:12→08:39)
--- NOTE | 2020-08-09 03:12 | NUR ---
PT WAS COMPLAINING OF GENERALIZED PAIN AT A SCALE OF 10/10. PT WAS GIVEN DILAUDID PRN FOR PAIN. BP WAS 111/70 PRIOR TO ADMINISTRATION OF MEDICATION. WILL MONITOR PAIN.
[2020-08-09] MEDS: NACL 0.45% 1,000 ML IV SCH (03:13)
[2020-08-09 04:00] VITALS: BP 110/66
--- NOTE | 2020-08-09 04:00 | NUR ---
PT WAS COMPLAINING OF ITCHING. OBSERVED HAND WHERE PATIENT WAS ITCHING AND THERE ARE A FEW SMALL BUMPS. OFFERED TO WASH THE AREA TO HELP WITH ITCHING AND PT REFUSED. WILL MONITOR TO SEE IF ISSUE RESOLVES.
--- NOTE | 2020-08-09 04:35 | NUR ---
OBSERVED AREAS WHERE PT WAS ITCHING AND SMALL BUMPS ON HAND HAS RESOLVED. PT STATED SHE IS NO LONGER ITCHY LIKE BEFORE. WILL CONTINUE TO MONITOR IF THE ISSUE RETURNS. PT IS NOW GOING BACK TO SLEEP.
--- NOTE | 2020-08-09 05:40 | NUR ---
PT IS COMPLAINING OF PAIN IN THE WHOLE BODY, GENERALIZED. PAIN IS STATED A 10/10. PT WAS GIVEN OXYCODONE ORDERED PRN FOR PAIN. WE HAVE NOW SWITCHED TO PO PAIN MEDS. BP WAS 117/71 PRIOR TO ADMINISTRATION. WILL MONITOR PAIN.
--- NOTE | 2020-08-09 06:50 | NUR ---
PT IS STILL COMPLAINING OF GENERALIZED PAIN AT A SCALE OF 9/10. TEXTED DR. PEREZ AND INFORMED HER ABOUT THE PAIN AND STATUS OF THE PT. WILL AWAIT FOR A RESPONSE BACK.
--- NOTE | 2020-08-09 07:20 | NUR ---
SPOKE TO DR. PEREZ IN PERSON AND INFORMED HER ON THE UPDATE OF THE PT. PT IS STILL IN PAIN AT A SCALE OF 9/10 AND DOCTOR IS AWARE AND WILL SPEAK TO PT.
--- NOTE | 2020-08-09 07:25 | NUR ---
ENDORSED PT TO DAY SHIFT NURSE FOR CONTINUITY OF CARE. PT IS STABLE AT THIS TIME. PLAN OF CARE DISCUSSED.
--- NOTE | 2020-08-09 07:26 | NUR ---
RECEIVED REPORT FROM FRENCH COMBER RN. PT NO DISTRESS NOTED. AAO X4. IV SGIHT INTACT. NEEDS ATTENDED. ON RA, UNLABORED. REVIEWED POC WITH PT. APPLIED SAFETY MEASURES. CALL LIGHT WITHIN REACH. WILL CONT TO MONITOR.
[2020-08-09 08:00] VITALS: BP 104/58
--- NOTE | 2020-08-09 08:39 | NUR ---
PT VERBALIZED PAIN. 07/02. PRN MEDS GIVEN.
[2020-08-09] MEDS: HYDROXYUREA 500 MG CAP PO SCH (08:44)
[2020-08-09] MEDS: MAGNESIUM OXIDE 400 MG TAB PO SCH (08:45)
[2020-08-09] MEDS: PANTOPRAZOLE 40 MG TABEC PO SCH (08:45)
--- NOTE | 2020-08-09 08:50 | NUR ---
PT IS RESTING. 5/10 PAIN LEVEL. ENCOURAGED PT TO TURN TO SIDE.
[2020-08-09] MEDS ORDERED: diphenhydrAMINE 50 MG/ML VIAL IVP SCH (09:51)
[2020-08-09] MEDS ORDERED: HYD500 PO (09:54)
[2020-08-09] MEDS ORDERED: OXYC10TA43 PO (09:57)
--- NOTE | 2020-08-09 10:55 | NUR ---
DISCHARGE INSTRUCTIONS PROVIDED TO PATIENT IN PREFERRED LANGUAGE OF [place]AN. INSTRUCTIONS ON FOLLOW-UP, NEW/CHANGED MEDICATION REGIMEN AND SIDE EFFECTS, DIET REGIMEN, AND DISEASE MANAGEMENT OF SICKLE CELL CRISIS. ANSWERED ALL OF PATIENT'S QUESTIONS REGARDING DISCHARGE. PATIENT VERBALIZED COMPLETE UNDERSTANDING. IV SITE REMOVED WITH MINIMAL BLOOD AND LUMEN COMPLETELY INTACT. ID BANDS REMOVED. PATIENT TO GET DRESSED AND THEN BE DISCHARGED HOME VIA UBER.
--- NOTE | 2020-08-09 11:05 | NUR ---
PATIENT'S UBER RIDE IS HERE. ESCORTED PATIENT DOWN TO LOBBY VIA [facility]BULATION. PATIENT DISCHARGED THIS TIME IN STABLE CONDITION.
== END 2020-08-09 11:05 | disposition home or self-care (01) | DRG 662 ==
LOC: MED 17:13 → MTU 19:56
PROVIDERS: ADMIT Family Medicine; ATTEND Family Medicine
DX: D57.00 Hb-SS disease with crisis, unspecified (principal); R65.10 Systemic inflammatory response syndrome (SIRS) of non-infectious origin without acute organ dysfunction; E87.6 Hypokalemia; E83.51 Hypocalcemia; E44.0 Moderate protein-calorie malnutrition; E83.42 Hypomagnesemia; M32.9 Systemic lupus erythematosus, unspecified; Z20.828 Contact with and (suspected) exposure to other viral communicable diseases; Z68.36 Body mass index [BMI] 36.0-36.9, adult; Z79.899 Other long term (current) drug therapy; Z90.49 Acquired absence of other specified parts of digestive tract; Z88.1 Allergy status to other antibiotic agents; Z88.0 Allergy status to penicillin; Z98.891 History of uterine scar from previous surgery; Z86.718 Personal history of other venous thrombosis and embolism
CPT/HCPCS: 36415; 71045; 80048; 80053; 80305; 81001; 81003; 82150; 82728; 83021; 83036; 83615; 83690; 83735; 83880; 84100; 84436; 84439; 84443; 84479; 84484; 85025; 85045; 85610; 85730; 86886; 86900; 86901; 87081; 96374; 96375; 99285; J1170; J1200; J2270; J2405; J7030